=== PATIENT | male | born 1955 | race African-American/Black ===

== ENCOUNTER 2020-04-22 10:38 | Inpatient (IN) | payer OTHER ==
[2020-04-22] MEDS ORDERED: DEXAMETHASONE SOD PHOSPHATE 4 MG/1 ML VIAL IVPUSH ONE (11:30)
[2020-04-22] MEDS ORDERED: DEXAMETHASONE SOD PHOSPHATE 4 MG/1 ML VIAL ONE (12:24)
[2020-04-22 12:25] LABS: BASO % 1.7 % (0-2.0); EOS % 1.1 % (0-4.5); HEMATOCRIT 30.3 % (35.4-49); HEMOGLOBIN 9.7 GM/dL (11.7-16.9); LYMPH % 17.4 % (8-40); MCHC 31.9 g/dl (32.0-35.9); MEAN CELL VOLUME 91.1 fl (80-96); MEAN PLT VOLUME 10.2 fl (7.5-11.1); MONO % 5.7 % (3.8-10.2); NEUT % 74.1 % (42.8-82.8); PLATELET COUNT 249 K/MM3 (134-434); RBC 3.33 M/mm3 (4.00-5.60); RDW 18.2 % (11.9-15.9); WHITE BLOOD COUNT 5.3 K/mm3 (4.0-10.0)
[2020-04-22 12:30] LABS: INR 1.03 (0.83-1.09); PROTHROMBIN TIME (PATIENT) 12.5 SEC (9.7-13.0)
[2020-04-22 12:32] LABS: ACTIVATED PTT 32.1 SECONDS (25.2-36.5)
[2020-04-22 12:37] LABS: CHLORIDE 105 mmol/L (98-107); SODIUM 141 mmol/L (136-145)
[2020-04-22 12:38] LABS: CALCIUM 8.4 mg/dL (8.5-10.1)
[2020-04-22 12:39] LABS: ALBUMIN 3.4 g/dl (3.4-5.0); ANION GAP 2 MMOL/L (8-16); BLOOD UREA NITROGEN 68.1 mg/dL (7-18); CO2 34 mmol/L (21-32); GLUCOSE,RANDOM 97 mg/dL (74-106)
[2020-04-22 12:42] LABS: CREATININE 2.5 mg/dL (0.55-1.3); SGOT/AST 76 U/L (15-37); SGPT/ALT 151 U/L (13-61)
[2020-04-22 12:44] LABS: BILIRUBIN,TOTAL 0.6 mg/dL (0.2-1); TOT PROT 6.5 g/dl (6.4-8.2)
[2020-04-22 12:45] LABS: ALK PHOS 125 U/L (45-117)
[2020-04-22 12:46] LABS: LDH 379 U/L (87-246)
[2020-04-22] MEDS ORDERED: FUROSEMIDE 40 MG/4 ML INJECTABLE VIAL IVPUSH ONE ×2 (13:09→20:00)
[2020-04-22] MEDS ORDERED: FUROSEMIDE 40 MG/4 ML INJECTABLE VIAL ONE (13:44)
[2020-04-22] MEDS ORDERED: AZITHROMYCIN IVPB 500 MG in DEXTROSE 5%-WATER - 250 ML IVPB SCH (15:30)
[2020-04-22] MEDS ORDERED: CEFTRIAXONE 1 GM in DEXTROSE 5%-WATER - 50 ML IVPB SCH (15:30)
[2020-04-22] MEDS ORDERED: ENOXAPARIN NA (PORCINE) 40 MG/0.4 ML DISP.SYRIN SQ SCH (15:30)
[2020-04-22] MEDS ORDERED: CEFTRIAXONE 1 GM/50 ML BAG ONE (15:58)
[2020-04-22] MEDS ORDERED: AZITHROMYCIN IVPB 500 MG/250 ML BAG IVPB ONE (15:58)
[2020-04-22] MEDS ORDERED: ALBUTEROL SO4 HFA INHALER IH PRN (18:31)
[2020-04-22] MEDS: INSULIN SLIDING SCALE (NOVOLOG) 1 VIAL SQ SCH (21:20)
[2020-04-22] MEDS: HEPARIN NA (PORCINE) 5,000 UNITS/ML 1ML VIAL SQ SCH (21:32)
[2020-04-22] MEDS: MONTELUKAST NA 10 MG TABLET PO SCH ×2 (21:32→21:59)
[2020-04-22] MEDS: ZINC SULFATE 220 MG CAPSULE (FP) PO SCH ×2 (21:32→21:59)
[2020-04-22] MEDS: CARVEDILOL 12.5 MG TABLET (FP) PO SCH ×2 (21:32→21:58)
[2020-04-22] MEDS: ATORVASTATIN CA 10 MG TABLET (FP) PO SCH ×2 (21:32→21:59)
[2020-04-22] MEDS: ASCORBIC ACID 500 MG TABLET (FP) PO SCH ×2 (21:32→21:59)
[2020-04-22] MEDS ORDERED: hydrALAZINE HCL 25 MG TABLET (FP) PO SCH (22:00)
[2020-04-22] MEDS ORDERED: PATIENT'S OWN MEDICATION (NON-FORMULARY) (Insulin Glargine,Hum.Rec.Anlog [Basaglar Kwikpen SQ SCH (22:00)
[2020-04-23] MEDS ORDERED: MIDODRINE HCL 5 MG TABLET PO ONE (05:01)
[2020-04-23] MEDS: HEPARIN NA (PORCINE) 5,000 UNITS/ML 1ML VIAL SQ SCH (05:21)
[2020-04-23] MEDS ORDERED: SODIUM CHLORIDE 250 ML IV STA (06:20)
[2020-04-23 09:23] LABS: ARTERIAL BLD GAS O2 SATURATION 98.9 mmHg (95-98); ARTERIAL BLOOD GAS BASE EXCESS -1.8 mmol/L (-2-2); ARTERIAL BLOOD GAS PO2 184.2 mmHg (80-100)
[2020-04-23 09:29] LABS: VENT MODE A/C; VENT RATE 20
[2020-04-23 09:34] LABS: ARTERIAL BLOOD GAS pH 7.191 (7.350-7.450)
[2020-04-23] MEDS ORDERED: DEXAMETHASONE SOD PHOSPHATE 4 MG/1 ML VIAL IVPUSH SCH (10:00)
[2020-04-23] MEDS ORDERED: TOPIRAMATE 25 MG TABLET PO SCH (10:00)
[2020-04-23] MEDS ORDERED: VALSARTAN 80 MG TABLET PO SCH (10:00)
[2020-04-23] MEDS ORDERED: FUROSEMIDE 40 MG/4 ML INJECTABLE VIAL IVPUSH SCH (10:00)
[2020-04-23] MEDS ORDERED: MIDODRINE HCL 5 MG TABLET PO SCH (10:00)
[2020-04-23] MEDS ORDERED: cefTRIAXone SODIUM 1 GM VIAL ONE (10:21)
[2020-04-23] MEDS ORDERED: PROPOFOL 1,000,000 MCG/100 ML VIAL ONE (10:22)
[2020-04-23] MEDS ORDERED: DEXTROSE 5%-WATER - 50 ML IVPB ONE ×4 (10:22→19:56)
[2020-04-23] MEDS ORDERED: FENTANYL IVPB 500 MCG/100 ML BAG IVPB ONE (10:23)
[2020-04-23] MEDS: FENTANYL NS IVPB 500 MCG/100 ML BAG IVPB SCH (11:00)
[2020-04-23] MEDS: PROPOFOL 1,000,000 MCG/100 ML VIAL IVPB SCH ×2 (11:00→20:00)
[2020-04-23 11:27] LABS: BASO % 0.1 % (0-2.0); HEMATOCRIT 31.4 % (35.4-49); HEMOGLOBIN 9.5 GM/dL (11.7-16.9); LYMPH % 4.9 % (8-40); MCH 28.6 pg (25.7-33.7); MCHC 30.3 g/dl (32.0-35.9); MEAN CELL VOLUME 94.3 fl (80-96); MEAN PLT VOLUME 8.8 fl (7.5-11.1); MONO % 13.9 % (3.8-10.2); NEUT % 81.1 % (42.8-82.8); PLATELET COUNT 275 K/MM3 (134-434); RBC 3.33 M/mm3 (4.00-5.60); RDW 18.1 % (11.9-15.9); WHITE BLOOD COUNT 7.5 K/mm3 (4.0-10.0)
[2020-04-23] MEDS: INSULIN (LEVEMIR) 100 UNITS/ML UNITS SQ SCH (11:39)
[2020-04-23] MEDS: INSULIN SLIDING SCALE (NOVOLOG) 1 VIAL SQ SCH ×4 (11:40→20:59)
[2020-04-23] MEDS: ASPIRIN 81 MG CHEWABLE TABLETS PO SCH (11:40)
[2020-04-23] MEDS ORDERED: SODIUM CHLORIDE 1,000 ML IV STA ×2 (11:55→14:38)
[2020-04-23 11:56] LABS: ALBUMIN 3.3 g/dl (3.4-5.0); BLOOD UREA NITROGEN 85.7 mg/dL (7-18); CALCIUM 8.4 mg/dL (8.5-10.1)
[2020-04-23 11:57] LABS: MAGNESIUM 3.8 mg/dL (1.8-2.4)
[2020-04-23 11:59] LABS: CREATININE 4.5 mg/dL (0.55-1.3)
[2020-04-23] MEDS ORDERED: VANCOMYCIN HCL 1,500 MG in DEXTROSE 5%-WATER - 500 ML IVPB ONE (12:00)
[2020-04-23 12:01] LABS: BILIRUBIN,TOTAL 0.6 mg/dL (0.2-1); TOT PROT 6.2 g/dl (6.4-8.2)
[2020-04-23] MEDS ORDERED: PT OWN MED DRAWER 7, Y5N ONE (12:01)
[2020-04-23] MEDS ORDERED: PIPERACILLIN/TAZOBACTAM 2.25 GM VIAL IVPB ONE ×3 (12:32→19:56)
[2020-04-23] MEDS: HEPARIN INFUSION - 25,000 UNITS/500 ML INFUS.BAG IVPB SCH (12:33)
[2020-04-23] MEDS: AZITHROMYCIN IVPB 500 MG/250 ML BAG IVPB SCH (12:33)
[2020-04-23] MEDS: ZINC SULFATE 220 MG CAPSULE (FP) PO SCH ×2 (12:33→20:59)
[2020-04-23] MEDS: ASCORBIC ACID 500 MG TABLET (FP) PO SCH ×2 (12:33→21:00)
[2020-04-23] MEDS: PIPERACILLIN/TAZOB 2.25 GM 2.25 GM in DEXTROSE 5%-WATER - 50 ML IVPB SCH ×3 (12:34→20:57)
[2020-04-23 12:35] LABS: PHOSPHOROUS 9.2 mg/dL (2.5-4.9)
[2020-04-23 13:53] LABS: ARTERIAL BLD GAS O2 SATURATION 98.5 mmHg (95-98); ARTERIAL BLOOD GAS BASE EXCESS -1.4 mmol/L (-2-2); ARTERIAL BLOOD GAS PO2 151.2 mmHg (80-100); ARTERIAL BLOOD GAS pH 7.227 (7.350-7.450)
[2020-04-23 13:54] LABS: ALLENS TEST POSITIVE
[2020-04-23 13:55] LABS: VENT MODE A/C; VENT RATE 26
[2020-04-23] MEDS: SODIUM CHLORIDE 1,000 ML IV SCH (14:46)
[2020-04-23] MEDS ORDERED: NOREPINEPHRINE BITARTRATE 8,000 MCG/500 ML BAG IVPB SCH (15:45)
[2020-04-23 17:49] LABS: BASO % 0.1 % (0-2.0); HEMATOCRIT 30.4 % (35.4-49); HEMOGLOBIN 9.5 GM/dL (11.7-16.9); LYMPH % 5.9 % (8-40); MCH 28.9 pg (25.7-33.7); MCHC 31.3 g/dl (32.0-35.9); MEAN CELL VOLUME 92.3 fl (80-96); MEAN PLT VOLUME 8.8 fl (7.5-11.1); MONO % 9.8 % (3.8-10.2); NEUT % 84.2 % (42.8-82.8); PLATELET COUNT 279 K/MM3 (134-434); RBC 3.29 M/mm3 (4.00-5.60); RDW 17.3 % (11.9-15.9); WHITE BLOOD COUNT 7.9 K/mm3 (4.0-10.0)
[2020-04-23 18:00] LABS: INR 1.02 (0.83-1.09); PROTHROMBIN TIME (PATIENT) 12.5 SEC (9.7-13.0)
[2020-04-23 18:03] LABS: ACTIVATED PTT 75.1 SECONDS (25.2-36.5)
[2020-04-23 18:13] LABS: ALBUMIN 3.2 g/dl (3.4-5.0); BLOOD UREA NITROGEN 79.6 mg/dL (7-18); CALCIUM 7.7 mg/dL (8.5-10.1)
[2020-04-23 18:17] LABS: CREATININE 4.6 mg/dL (0.55-1.3)
[2020-04-23 18:18] LABS: BILIRUBIN,TOTAL 0.9 mg/dL (0.2-1); TOT PROT 6.1 g/dl (6.4-8.2)
[2020-04-23 18:39] LABS: MAGNESIUM 3.5 mg/dL (1.8-2.4)
[2020-04-23 18:42] LABS: PHOSPHOROUS 8.6 mg/dL (2.5-4.9)
[2020-04-23] MEDS ORDERED: FUROSEMIDE 40 MG/4 ML INJECTABLE VIAL IVPUSH ONE (19:32)
[2020-04-23] MEDS ORDERED: PANTOPRAZOLE SODIUM 40 MG VIAL IVPUSH ONE (20:29)
[2020-04-23] MEDS: MONTELUKAST NA 10 MG TABLET PO SCH (21:00)
[2020-04-24 02:05] LABS: VENT RATE 16
[2020-04-24] MEDS: PIPERACILLIN/TAZOB 2.25 GM 2.25 GM in DEXTROSE 5%-WATER - 50 ML IVPB SCH ×4 (03:00→21:00)
[2020-04-24] MEDS ORDERED: PIPERACILLIN/TAZOBACTAM 2.25 GM VIAL IVPB ONE ×4 (03:44→23:07)
[2020-04-24] MEDS ORDERED: DEXTROSE 5%-WATER - 50 ML IVPB ONE ×2 (03:44→09:39)
[2020-04-24] MEDS ORDERED: PT OWN MED DRAWER 7, Y5N ONE (05:31)
[2020-04-24 05:51] LABS: ARTERIAL BLD GAS O2 SATURATION 96.7 mmHg (95-98); ARTERIAL BLOOD GAS BASE EXCESS -5.5 mmol/L (-2-2); ARTERIAL BLOOD GAS PO2 110.6 mmHg (80-100)
[2020-04-24 05:53] LABS: ALLENS TEST POSITIVE; VENT MODE A/C; VENT RATE 26
[2020-04-24 05:55] LABS: ARTERIAL BLOOD GAS pH 7.172 (7.350-7.450)
[2020-04-24] MEDS: INSULIN SLIDING SCALE (NOVOLOG) 1 VIAL SQ SCH ×4 (06:31→22:00)
[2020-04-24] MEDS: HEPARIN INFUSION - 25,000 UNITS/500 ML INFUS.BAG IVPB SCH (07:30)
[2020-04-24] MEDS: INSULIN (LEVEMIR) 100 UNITS/ML UNITS SQ SCH (07:45)
[2020-04-24] MEDS: VASOPRESSIN 40 UNITS in SODIUM CHLORIDE 98 ML IVPB SCH (08:15)
[2020-04-24] MEDS ORDERED: SODIUM CHLORIDE 0.9% 500 ML INFUS.BAG IV ONE (08:49)
[2020-04-24] MEDS: NOREPINEPHRINE BITARTRATE 16,000 MCG in SODIUM CHLORIDE 484 ML IV SCH ×2 (09:00→21:03)
[2020-04-24 09:13] LABS: INR 1.03 (0.83-1.09); PROTHROMBIN TIME (PATIENT) 12.5 SEC (9.7-13.0)
[2020-04-24 09:15] LABS: BASO % 0.1 % (0-2.0); HEMATOCRIT 30.6 % (35.4-49); HEMOGLOBIN 9.3 GM/dL (11.7-16.9); LYMPH % 7.1 % (8-40); MCH 28.9 pg (25.7-33.7); MCHC 30.4 g/dl (32.0-35.9); MEAN CELL VOLUME 95.2 fl (80-96); MEAN PLT VOLUME 9.3 fl (7.5-11.1); MONO % 7.6 % (3.8-10.2); NEUT % 85.2 % (42.8-82.8); PLATELET COUNT 279 K/MM3 (134-434); RBC 3.21 M/mm3 (4.00-5.60); RDW 17.9 % (11.9-15.9); WHITE BLOOD COUNT 8.9 K/mm3 (4.0-10.0)
[2020-04-24 09:16] LABS: ACTIVATED PTT 103.4 SECONDS (25.2-36.5)
[2020-04-24 09:56] LABS: BLOOD UREA NITROGEN 97.2 mg/dL (7-18); CALCIUM 7.2 mg/dL (8.5-10.1); CREATININE 5.1 mg/dL (0.55-1.3); MAGNESIUM 3.5 mg/dL (1.8-2.4); PHOSPHOROUS 8.6 mg/dL (2.5-4.9)
[2020-04-24] MEDS: AZITHROMYCIN IVPB 500 MG/250 ML BAG IVPB SCH (10:02)
[2020-04-24] MEDS: ASPIRIN 81 MG CHEWABLE TABLETS PO SCH ×2 (10:03→10:21)
[2020-04-24] MEDS: ZINC SULFATE 220 MG CAPSULE (FP) PO SCH ×3 (10:03→22:58)
[2020-04-24] MEDS: ASCORBIC ACID 500 MG TABLET (FP) PO SCH ×3 (10:03→22:59)
[2020-04-24] MEDS: FENTANYL NS IVPB 500 MCG/100 ML BAG IVPB SCH ×2 (10:04→18:57)
[2020-04-24] MEDS ORDERED: DEXTROSE 50%-WATER - 25 GM/50 ML VIAL IVPUSH ONE (10:30)
[2020-04-24] MEDS ORDERED: SODIUM BICARBONATE 8.4% 50 MEQ/50 ML DISP.SYRIN IVPUSH ONE (10:30)
[2020-04-24] MEDS ORDERED: INSULIN REGULAR HUMAN 100 UNITS/ML *VIAL IVPUSH ONE (10:30)
[2020-04-24] MEDS ORDERED: DEXTROSE 50%-WATER 25 GM/50 ML DISP.SYRIN ONE (12:11)
[2020-04-24 12:43] LABS: ARTERIAL BLD GAS O2 SATURATION 96.6 mmHg (95-98); ARTERIAL BLOOD GAS BASE EXCESS -6.6 mmol/L (-2-2); ARTERIAL BLOOD GAS PO2 102.3 mmHg (80-100); ARTERIAL BLOOD GAS pH 7.238 (7.350-7.450)
[2020-04-24 12:45] LABS: ALLENS TEST POSITIVE; VENT MODE AC; VENT RATE 26
[2020-04-24 14:52] LABS: CALCIUM 7.3 mg/dL (8.5-10.1); CREATININE 5.3 mg/dL (0.55-1.3)
[2020-04-24 14:53] LABS: BLOOD UREA NITROGEN 107.7 mg/dL (7-18)
[2020-04-24 14:58] LABS: EPI CELLS >36 /uL (0-25.1); HYALINE CASTS 26 /uL (0-3.1); URINE APPEARANCE TURBID; URINE BILIRUBIN 1+ (NEGATIVE); URINE COLOR RED; URINE GLUCOSE (UA) NEGATIVE (NEGATIVE); URINE KETONE NEGATIVE (NEGATIVE); URINE LEUK ESTERASE 2+ (NEGATIVE); URINE NITRITE POSITIVE (NEGATIVE); URINE PROTEIN 2+ (NEGATIVE); URINE RBC 30539 /uL (0-23.9); URINE UROBILINOGEN 0.2 mg/dL (0.2-1.0); URINE WBC 170 /uL (0-25.8)
[2020-04-24 15:50] VITALS: BMI 48.4
[2020-04-24] MEDS ORDERED: SODIUM CHLORIDE 250 ML IV PRN (16:33)
[2020-04-24] MEDS: SODIUM CHLORIDE 1,000 ML IV SCH (16:56)
[2020-04-24] MEDS: PROPOFOL 1,000,000 MCG/100 ML VIAL IVPB SCH (18:57)
[2020-04-24] MEDS: MONTELUKAST NA 10 MG TABLET PO SCH (22:59)
[2020-04-25] MEDS: HEPARIN NA (PORCINE) 5,000 UNITS/ML 1ML VIAL IVPUSH PRN (01:00)
[2020-04-25] MEDS: NOREPINEPHRINE BITARTRATE 16,000 MCG in SODIUM CHLORIDE 484 ML IV SCH ×4 (01:01→09:48)
[2020-04-25] MEDS: PIPERACILLIN/TAZOB 2.25 GM 2.25 GM in DEXTROSE 5%-WATER - 50 ML IVPB SCH ×4 (03:00→21:13)
[2020-04-25 06:50] LABS: HEMATOCRIT 28.7 % (35.4-49); HEMOGLOBIN 9.2 GM/dL (11.7-16.9); MCH 29.2 pg (25.7-33.7); MCHC 32.2 g/dl (32.0-35.9); MEAN CELL VOLUME 90.8 fl (80-96); MEAN PLT VOLUME 8.8 fl (7.5-11.1); PLATELET COUNT 240 K/MM3 (134-434); RBC 3.16 M/mm3 (4.00-5.60); RDW 17.7 % (11.9-15.9); WHITE BLOOD COUNT 8.2 K/mm3 (4.0-10.0)
[2020-04-25] MEDS: INSULIN SLIDING SCALE (NOVOLOG) 1 VIAL SQ SCH ×4 (06:55→21:32)
[2020-04-25] MEDS: INSULIN (LEVEMIR) 100 UNITS/ML UNITS SQ SCH (07:23)
[2020-04-25] MEDS: HEPARIN INFUSION - 25,000 UNITS/500 ML INFUS.BAG IVPB SCH ×2 (09:21→14:05)
[2020-04-25] MEDS: VASOPRESSIN 40 UNITS in SODIUM CHLORIDE 98 ML IVPB SCH ×2 (09:23→09:49)
[2020-04-25] MEDS ORDERED: PIPERACILLIN/TAZOBACTAM 2.25 GM VIAL IVPB ONE ×3 (09:41→21:08)
[2020-04-25] MEDS ORDERED: DEXTROSE 5%-WATER - 50 ML IVPB ONE ×3 (09:42→21:08)
[2020-04-25] MEDS: AZITHROMYCIN IVPB 500 MG/250 ML BAG IVPB SCH (09:48)
[2020-04-25] MEDS: PROPOFOL 1,000,000 MCG/100 ML VIAL IVPB SCH ×4 (09:48→21:13)
[2020-04-25] MEDS: FENTANYL NS IVPB 500 MCG/100 ML BAG IVPB SCH ×4 (09:49→21:14)
[2020-04-25 10:43] LABS: CALCIUM 7.8 mg/dL (8.5-10.1)
[2020-04-25 10:44] LABS: ALBUMIN 2.8 g/dl (3.4-5.0); MAGNESIUM 2.9 mg/dL (1.8-2.4)
[2020-04-25 10:47] LABS: CREATININE 3.7 mg/dL (0.55-1.3); PHOSPHOROUS 5.3 mg/dL (2.5-4.9)
[2020-04-25 10:48] LABS: BILIRUBIN,TOTAL 0.6 mg/dL (0.2-1)
[2020-04-25 10:49] LABS: TOT PROT 5.7 g/dl (6.4-8.2)
[2020-04-25 10:52] LABS: BLOOD UREA NITROGEN 71.8 mg/dL (7-18)
[2020-04-25] MEDS: FAMOTIDINE 20 MG/50 ML IVPB 20 MG/50 ML MG IVPB SCH (14:01)
[2020-04-25] MEDS: SODIUM CHLORIDE 1,000 ML IV SCH (14:03)
[2020-04-25] MEDS: ASPIRIN 81 MG CHEWABLE TABLETS PO SCH (18:06)
[2020-04-25] MEDS: ASCORBIC ACID 500 MG TABLET (FP) PO SCH ×2 (18:07→21:13)
[2020-04-25] MEDS: ZINC SULFATE 220 MG CAPSULE (FP) PO SCH ×2 (18:07→21:13)
[2020-04-25] MEDS ORDERED: FENTANYL IVPB 500 MCG/100 ML BAG IVPB ONE (21:06)
[2020-04-25] MEDS: MONTELUKAST NA 10 MG TABLET PO SCH (21:13)
[2020-04-26] MEDS: PIPERACILLIN/TAZOB 2.25 GM 2.25 GM in DEXTROSE 5%-WATER - 50 ML IVPB SCH ×4 (03:07→21:49)
[2020-04-26] MEDS ORDERED: FENTANYL IVPB 500 MCG/100 ML BAG IVPB ONE (03:28)
[2020-04-26] MEDS ORDERED: DEXTROSE 5%-WATER - 50 ML IVPB ONE ×4 (05:01→20:41)
[2020-04-26] MEDS ORDERED: PIPERACILLIN/TAZOBACTAM 2.25 GM VIAL IVPB ONE ×4 (05:01→20:41)
[2020-04-26] MEDS: INSULIN (LEVEMIR) 100 UNITS/ML UNITS SQ SCH (06:30)
[2020-04-26] MEDS: INSULIN SLIDING SCALE (NOVOLOG) 1 VIAL SQ SCH ×4 (06:31→22:00)
[2020-04-26 06:50] LABS: BASO % 0.1 % (0-2.0); EOS % 0.7 % (0-4.5); HEMATOCRIT 24.9 % (35.4-49); HEMOGLOBIN 8.1 GM/dL (11.7-16.9); LYMPH % 13.7 % (8-40); MCHC 32.5 g/dl (32.0-35.9); MEAN CELL VOLUME 89.3 fl (80-96); MEAN PLT VOLUME 9.2 fl (7.5-11.1); MONO % 8.5 % (3.8-10.2); PLATELET COUNT 215 K/MM3 (134-434); RBC 2.79 M/mm3 (4.00-5.60); RDW 17.7 % (11.9-15.9); WHITE BLOOD COUNT 7.2 K/mm3 (4.0-10.0)
[2020-04-26 07:16] LABS: ALBUMIN 2.3 g/dl (3.4-5.0); CALCIUM 7.9 mg/dL (8.5-10.1)
[2020-04-26 07:17] LABS: BLOOD UREA NITROGEN 71.6 mg/dL (7-18); MAGNESIUM 2.7 mg/dL (1.8-2.4)
[2020-04-26 07:20] LABS: CREATININE 3.8 mg/dL (0.55-1.3)
[2020-04-26 07:21] LABS: PHOSPHOROUS 4.8 mg/dL (2.5-4.9); TOT PROT 5.1 g/dl (6.4-8.2)
[2020-04-26 07:24] LABS: BILIRUBIN,TOTAL 0.6 mg/dL (0.2-1)
[2020-04-26] MEDS: PROPOFOL 1,000,000 MCG/100 ML VIAL IVPB SCH ×2 (07:30→16:59)
[2020-04-26 08:06] LABS: HIV INTERPRETATION NEGATIVE (NEGATIVE)
[2020-04-26] MEDS: HEPARIN INFUSION - 25,000 UNITS/500 ML INFUS.BAG IVPB SCH (09:29)
[2020-04-26] MEDS: VASOPRESSIN 40 UNITS in SODIUM CHLORIDE 98 ML IVPB SCH (09:30)
[2020-04-26] MEDS: NOREPINEPHRINE BITARTRATE 16,000 MCG in SODIUM CHLORIDE 484 ML IV SCH (09:30)
[2020-04-26] MEDS: HEPARIN NA (PORCINE) 5,000 UNITS/ML 1ML VIAL IVPUSH PRN ×2 (09:33→19:00)
[2020-04-26] MEDS: AZITHROMYCIN IVPB 500 MG/250 ML BAG IVPB SCH (10:30)
[2020-04-26] MEDS: ZINC SULFATE 220 MG CAPSULE (FP) PO SCH (10:33)
[2020-04-26] MEDS: ASPIRIN 81 MG CHEWABLE TABLETS PO SCH (10:33)
[2020-04-26] MEDS: FAMOTIDINE 20 MG/50 ML IVPB 20 MG/50 ML MG IVPB SCH (10:33)
[2020-04-26] MEDS: ASCORBIC ACID 500 MG TABLET (FP) PO SCH (10:33)
[2020-04-26] MEDS: FUROSEMIDE 40 MG/4 ML INJECTABLE VIAL IVPUSH SCH ×2 (12:37→21:50)
[2020-04-26] MEDS: FENTANYL NS IVPB 500 MCG/100 ML BAG IVPB SCH (16:59)
[2020-04-26] MEDS: SODIUM CHLORIDE 1,000 ML IV SCH (21:33)
[2020-04-26] MEDS: MONTELUKAST NA 10 MG TABLET PO SCH (21:50)
[2020-04-27] MEDS: PIPERACILLIN/TAZOB 2.25 GM 2.25 GM in DEXTROSE 5%-WATER - 50 ML IVPB SCH ×4 (03:39→21:00)
[2020-04-27] MEDS: INSULIN SLIDING SCALE (NOVOLOG) 1 VIAL SQ SCH ×4 (06:10→22:00)
[2020-04-27] MEDS: INSULIN (LEVEMIR) 100 UNITS/ML UNITS SQ SCH (06:10)
[2020-04-27] MEDS ORDERED: DEXTROSE 5%-WATER - 50 ML IVPB ONE ×4 (06:45→20:09)
[2020-04-27] MEDS ORDERED: PIPERACILLIN/TAZOBACTAM 2.25 GM VIAL IVPB ONE ×4 (06:45→20:09)
[2020-04-27 07:29] LABS: BASO % 0.4 % (0-2.0); EOS % 0.4 % (0-4.5); HEMATOCRIT 25.3 % (35.4-49); HEMOGLOBIN 8.2 GM/dL (11.7-16.9); LYMPH % 19.6 % (8-40); MCH 28.7 pg (25.7-33.7); MCHC 32.4 g/dl (32.0-35.9); MEAN CELL VOLUME 88.5 fl (80-96); MEAN PLT VOLUME 9.4 fl (7.5-11.1); NEUT % 68.6 % (42.8-82.8); PLATELET COUNT 225 K/MM3 (134-434); RBC 2.86 M/mm3 (4.00-5.60); RDW 17.3 % (11.9-15.9); WHITE BLOOD COUNT 7.1 K/mm3 (4.0-10.0)
[2020-04-27 07:46] LABS: ALBUMIN 2.2 g/dl (3.4-5.0); CALCIUM 8.1 mg/dL (8.5-10.1)
[2020-04-27 07:47] LABS: BLOOD UREA NITROGEN 68.8 mg/dL (7-18); MAGNESIUM 2.7 mg/dL (1.8-2.4)
[2020-04-27 07:50] LABS: CREATININE 3.8 mg/dL (0.55-1.3); PHOSPHOROUS 4.5 mg/dL (2.5-4.9)
[2020-04-27] MEDS: HEPARIN NA (PORCINE) 5,000 UNITS/ML 1ML VIAL IVPUSH PRN (07:50)
[2020-04-27 07:51] LABS: BILIRUBIN,TOTAL 0.6 mg/dL (0.2-1); TOT PROT 5.4 g/dl (6.4-8.2)
[2020-04-27] MEDS: NOREPINEPHRINE BITARTRATE 16,000 MCG in SODIUM CHLORIDE 484 ML IV SCH (09:19)
[2020-04-27] MEDS: HEPARIN INFUSION - 25,000 UNITS/500 ML INFUS.BAG IVPB SCH (09:20)
[2020-04-27] MEDS: FAMOTIDINE 20 MG/50 ML IVPB 20 MG/50 ML MG IVPB SCH (10:41)
[2020-04-27] MEDS: ASPIRIN 81 MG CHEWABLE TABLETS PO SCH (10:42)
[2020-04-27] MEDS: FUROSEMIDE 40 MG/4 ML INJECTABLE VIAL IVPUSH SCH ×2 (10:42→22:00)
[2020-04-27] MEDS: AMINO ACIDS/PROTEIN HYDROLYS 30 ML LIQUID.PKT PO SCH (16:50)
[2020-04-27] MEDS: FENTANYL NS IVPB 500 MCG/100 ML BAG IVPB SCH ×2 (18:40→20:00)
[2020-04-27] MEDS: PROPOFOL 1,000,000 MCG/100 ML VIAL IVPB SCH ×2 (18:40→20:00)
[2020-04-27] MEDS ORDERED: NOREPINEPHRINE BITARTRATE 8,000 MCG/500 ML BAG IVPB ONE (20:09)
[2020-04-27] MEDS: MONTELUKAST NA 10 MG TABLET PO SCH (23:39)
[2020-04-28] MEDS: HEPARIN INFUSION - 25,000 UNITS/500 ML INFUS.BAG IVPB SCH ×2 (00:30→12:36)
[2020-04-28] MEDS: PIPERACILLIN/TAZOB 2.25 GM 2.25 GM in DEXTROSE 5%-WATER - 50 ML IVPB SCH ×4 (03:00→21:36)
[2020-04-28] MEDS ORDERED: PIPERACILLIN/TAZOBACTAM 2.25 GM VIAL IVPB ONE ×4 (04:58→21:31)
[2020-04-28] MEDS ORDERED: DEXTROSE 5%-WATER - 50 ML IVPB ONE ×4 (04:59→21:31)
[2020-04-28] MEDS: INSULIN (LEVEMIR) 100 UNITS/ML UNITS SQ SCH (06:42)
[2020-04-28] MEDS: INSULIN SLIDING SCALE (NOVOLOG) 1 VIAL SQ SCH ×4 (06:42→21:42)
[2020-04-28 06:52] LABS: BASO % 0.6 % (0-2.0); EOS % 0.5 % (0-4.5); HEMATOCRIT 23.7 % (35.4-49); HEMOGLOBIN 7.7 GM/dL (11.7-16.9); LYMPH % 11.2 % (8-40); MCH 28.7 pg (25.7-33.7); MCHC 32.3 g/dl (32.0-35.9); MEAN CELL VOLUME 88.8 fl (80-96); MEAN PLT VOLUME 9.1 fl (7.5-11.1); NEUT % 79.7 % (42.8-82.8); PLATELET COUNT 195 K/MM3 (134-434); RBC 2.67 M/mm3 (4.00-5.60); RDW 17.3 % (11.9-15.9); WHITE BLOOD COUNT 7.3 K/mm3 (4.0-10.0)
[2020-04-28] MEDS: AMINO ACIDS/PROTEIN HYDROLYS 30 ML LIQUID.PKT PO SCH (07:51)
[2020-04-28 08:47] LABS: ALBUMIN 2.1 g/dl (3.4-5.0); BILIRUBIN,TOTAL 1.3 mg/dL (0.2-1); CREATININE 3.7 mg/dL (0.55-1.3); MAGNESIUM 2.6 mg/dL (1.8-2.4); PHOSPHOROUS 5.9 mg/dL (2.5-4.9); TOT PROT 5.2 g/dl (6.4-8.2)
[2020-04-28] MEDS: NOREPINEPHRINE BITARTRATE 16,000 MCG in SODIUM CHLORIDE 484 ML IV SCH (09:24)
[2020-04-28] MEDS: FUROSEMIDE 40 MG/4 ML INJECTABLE VIAL IVPUSH SCH ×2 (09:24→21:36)
[2020-04-28] MEDS: FAMOTIDINE 20 MG/50 ML IVPB 20 MG/50 ML MG IVPB SCH (10:23)
[2020-04-28] MEDS: ASPIRIN 81 MG CHEWABLE TABLETS PO SCH (10:52)
[2020-04-28] MEDS: PROPOFOL 1,000,000 MCG/100 ML VIAL IVPB SCH (19:40)
[2020-04-28] MEDS: FENTANYL NS IVPB 500 MCG/100 ML BAG IVPB SCH (19:40)
[2020-04-28] MEDS: MONTELUKAST NA 10 MG TABLET PO SCH (21:36)
[2020-04-29] MEDS ORDERED: PIPERACILLIN/TAZOBACTAM 2.25 GM VIAL IVPB ONE ×4 (00:11→21:20)
[2020-04-29] MEDS ORDERED: DEXTROSE 5%-WATER - 50 ML IVPB ONE ×4 (00:11→21:20)
[2020-04-29] MEDS: PIPERACILLIN/TAZOB 2.25 GM 2.25 GM in DEXTROSE 5%-WATER - 50 ML IVPB SCH ×4 (03:20→21:31)
[2020-04-29] MEDS: INSULIN (LEVEMIR) 100 UNITS/ML UNITS SQ SCH (06:24)
[2020-04-29] MEDS: INSULIN SLIDING SCALE (NOVOLOG) 1 VIAL SQ SCH ×4 (06:24→22:31)
[2020-04-29] MEDS: AMINO ACIDS/PROTEIN HYDROLYS 30 ML LIQUID.PKT PO SCH (07:40)
[2020-04-29 08:03] LABS: BASO % 0.1 % (0-2.0); HEMATOCRIT 22.3 % (35.4-49); HEMOGLOBIN 7.2 GM/dL (11.7-16.9); LYMPH % 11.4 % (8-40); MCH 28.7 pg (25.7-33.7); MCHC 32.3 g/dl (32.0-35.9); MEAN CELL VOLUME 88.8 fl (80-96); MEAN PLT VOLUME 8.9 fl (7.5-11.1); MONO % 10.3 % (3.8-10.2); NEUT % 77.2 % (42.8-82.8); PLATELET COUNT 196 K/MM3 (134-434); RBC 2.51 M/mm3 (4.00-5.60); RDW 17.3 % (11.9-15.9); WHITE BLOOD COUNT 7.1 K/mm3 (4.0-10.0)
[2020-04-29] MEDS: HEPARIN INFUSION - 25,000 UNITS/500 ML INFUS.BAG IVPB SCH (08:38)
[2020-04-29] MEDS: NOREPINEPHRINE BITARTRATE 16,000 MCG in SODIUM CHLORIDE 484 ML IV SCH (09:20)
[2020-04-29] MEDS: ASPIRIN 81 MG CHEWABLE TABLETS PO SCH (09:22)
[2020-04-29] MEDS: FAMOTIDINE 20 MG/50 ML IVPB 20 MG/50 ML MG IVPB SCH (09:22)
[2020-04-29] MEDS: FUROSEMIDE 40 MG/4 ML INJECTABLE VIAL IVPUSH SCH (09:22)
[2020-04-29 10:21] LABS: BILIRUBIN,TOTAL 0.4 mg/dL (0.2-1); BLOOD UREA NITROGEN 81.6 mg/dL (7-18); CALCIUM 8.2 mg/dL (8.5-10.1); TOT PROT 5.3 g/dl (6.4-8.2)
[2020-04-29] MEDS ORDERED: PROPOFOL 200 MG/20 ML VIAL IVPUSH ONE (13:32)
[2020-04-29] MEDS ORDERED: MIDAZOLAM HCL 2 MG/2 ML SINGLE DOSE VIAL IVPUSH ONE ×2 (13:33→16:08)
[2020-04-29] MEDS: BACITRACIN 15 GM TUBE TOPICAL OINTMENT TP SCH (13:41)
[2020-04-29] MEDS: PROPOFOL 1,000,000 MCG/100 ML VIAL IVPB SCH ×2 (13:56→19:37)
[2020-04-29] MEDS: FENTANYL NS IVPB 500 MCG/100 ML BAG IVPB SCH (13:57)
[2020-04-29] MEDS ORDERED: ALBUTEROL SO4 2.5/IPRATROPIUM 0.5 INH SOL 3 ML VIAL.NEB. NEB ONE (16:18)
[2020-04-29] MEDS: MIDAZOLAM 100 MG/100 ML MG IVPB SCH (16:23)
[2020-04-29] MEDS: ACETAMINOPHEN 1000 MG/100 ML BAG IVPB PRN (18:10)
[2020-04-29] MEDS: MONTELUKAST NA 10 MG TABLET PO SCH (21:32)
[2020-04-30] MEDS ORDERED: DEXTROSE 5%-WATER - 50 ML IVPB ONE ×4 (02:13→21:12)
[2020-04-30] MEDS ORDERED: PIPERACILLIN/TAZOBACTAM 2.25 GM VIAL IVPB ONE ×4 (02:13→21:12)
[2020-04-30] MEDS: ACETAMINOPHEN 1000 MG/100 ML BAG IVPB PRN (02:26)
[2020-04-30] MEDS: PIPERACILLIN/TAZOB 2.25 GM 2.25 GM in DEXTROSE 5%-WATER - 50 ML IVPB SCH ×4 (02:26→21:15)
[2020-04-30] MEDS: HEPARIN INFUSION - 25,000 UNITS/500 ML INFUS.BAG IVPB SCH ×3 (03:57→21:16)
[2020-04-30] MEDS: INSULIN (LEVEMIR) 100 UNITS/ML UNITS SQ SCH (06:22)
[2020-04-30] MEDS: FUROSEMIDE 40 MG/4 ML INJECTABLE VIAL IVPUSH SCH ×2 (06:22→13:53)
[2020-04-30] MEDS: INSULIN SLIDING SCALE (NOVOLOG) 1 VIAL SQ SCH ×4 (06:22→21:16)
[2020-04-30 06:51] LABS: BASO % 0.4 % (0-2.0); HEMATOCRIT 21.4 % (35.4-49); LYMPH % 13.8 % (8-40); MCH 28.9 pg (25.7-33.7); MCHC 32.5 g/dl (32.0-35.9); MEAN CELL VOLUME 88.9 fl (80-96); MEAN PLT VOLUME 9.3 fl (7.5-11.1); MONO % 12.3 % (3.8-10.2); NEUT % 71.5 % (42.8-82.8); PLATELET COUNT 199 K/MM3 (134-434); RBC 2.41 M/mm3 (4.00-5.60); RDW 17.1 % (11.9-15.9); WHITE BLOOD COUNT 6.8 K/mm3 (4.0-10.0)
[2020-04-30 07:00] LABS: INR 1.15 (0.83-1.09); PROTHROMBIN TIME (PATIENT) 14.1 SEC (9.7-13.0)
[2020-04-30 07:03] LABS: ACTIVATED PTT 68.7 SECONDS (25.2-36.5)
[2020-04-30 07:13] LABS: ALBUMIN 1.9 g/dl (3.4-5.0); BLOOD UREA NITROGEN 92.1 mg/dL (7-18); CALCIUM 8.1 mg/dL (8.5-10.1)
[2020-04-30 07:17] LABS: CREATININE 3.9 mg/dL (0.55-1.3)
[2020-04-30 07:18] LABS: BILIRUBIN,TOTAL 0.5 mg/dL (0.2-1); TOT PROT 5.3 g/dl (6.4-8.2)
[2020-04-30] MEDS: NOREPINEPHRINE BITARTRATE 16,000 MCG in SODIUM CHLORIDE 484 ML IV SCH (10:24)
[2020-04-30] MEDS: AMINO ACIDS/PROTEIN HYDROLYS 30 ML LIQUID.PKT PO SCH (10:24)
[2020-04-30] MEDS: ASPIRIN 81 MG CHEWABLE TABLETS PO SCH (10:25)
[2020-04-30] MEDS: BACITRACIN 15 GM TUBE TOPICAL OINTMENT TP SCH (10:25)
[2020-04-30] MEDS: FAMOTIDINE 20 MG/50 ML IVPB 20 MG/50 ML MG IVPB SCH (10:25)
[2020-04-30] MEDS: PROPOFOL 1,000,000 MCG/100 ML VIAL IVPB SCH ×3 (10:43→21:17)
[2020-04-30] MEDS: MIDAZOLAM 100 MG/100 ML MG IVPB SCH ×2 (16:23→21:16)
[2020-04-30] MEDS: FERROUS SO4 300 MG/5 ML ORAL SOLN UNIT DOSE CUPS NGT SCH (21:15)
[2020-04-30] MEDS: MONTELUKAST NA 10 MG TABLET PO SCH (21:16)
[2020-05-01] MEDS ORDERED: PIPERACILLIN/TAZOBACTAM 2.25 GM VIAL IVPB ONE ×5 (02:33→23:36)
[2020-05-01] MEDS ORDERED: DEXTROSE 5%-WATER - 50 ML IVPB ONE ×5 (02:34→23:36)
[2020-05-01] MEDS: PIPERACILLIN/TAZOB 2.25 GM 2.25 GM in DEXTROSE 5%-WATER - 50 ML IVPB SCH ×4 (02:44→23:21)
[2020-05-01] MEDS: PROPOFOL 1,000,000 MCG/100 ML VIAL IVPB SCH ×4 (02:44→16:30)
[2020-05-01] MEDS: FUROSEMIDE 40 MG/4 ML INJECTABLE VIAL IVPUSH SCH ×2 (06:13→14:00)
[2020-05-01] MEDS: INSULIN SLIDING SCALE (NOVOLOG) 1 VIAL SQ SCH ×4 (06:14→23:58)
[2020-05-01] MEDS: INSULIN (LEVEMIR) 100 UNITS/ML UNITS SQ SCH (06:14)
[2020-05-01] MEDS: NOREPINEPHRINE BITARTRATE 16,000 MCG in SODIUM CHLORIDE 484 ML IV SCH ×2 (06:15→09:28)
[2020-05-01] MEDS: MIDAZOLAM 100 MG/100 ML MG IVPB SCH ×2 (06:15→17:01)
[2020-05-01 07:06] LABS: BASO % 0.3 % (0-2.0); EOS % 1.6 % (0-4.5); HEMATOCRIT 21.5 % (35.4-49); LYMPH % 11.8 % (8-40); MCH 28.9 pg (25.7-33.7); MCHC 32.4 g/dl (32.0-35.9); MEAN CELL VOLUME 89.2 fl (80-96); MEAN PLT VOLUME 9.2 fl (7.5-11.1); MONO % 10.1 % (3.8-10.2); NEUT % 76.2 % (42.8-82.8); PLATELET COUNT 212 K/MM3 (134-434); RBC 2.42 M/mm3 (4.00-5.60); RDW 17.2 % (11.9-15.9); WHITE BLOOD COUNT 9.5 K/mm3 (4.0-10.0)
[2020-05-01] MEDS ORDERED: PT OWN MED DRAWER 7, Y5N ONE ×4 (07:54→20:34)
[2020-05-01] MEDS: AMINO ACIDS/PROTEIN HYDROLYS 30 ML LIQUID.PKT PO SCH ×2 (07:55→16:48)
[2020-05-01 09:08] LABS: ALBUMIN 1.9 g/dl (3.4-5.0); BLOOD UREA NITROGEN 102.7 mg/dL (7-18); CALCIUM 8.4 mg/dL (8.5-10.1)
[2020-05-01 09:12] LABS: CREATININE 4.3 mg/dL (0.55-1.3)
[2020-05-01 09:13] LABS: BILIRUBIN,TOTAL 0.3 mg/dL (0.2-1); TOT PROT 5.5 g/dl (6.4-8.2)
[2020-05-01 09:13] LABS: INR 1.13 (0.83-1.09); PROTHROMBIN TIME (PATIENT) 13.8 SEC (9.7-13.0)
[2020-05-01 09:15] LABS: ACTIVATED PTT 62.6 SECONDS (25.2-36.5)
[2020-05-01] MEDS: ASPIRIN 81 MG CHEWABLE TABLETS PO SCH (09:40)
[2020-05-01] MEDS: BACITRACIN 15 GM TUBE TOPICAL OINTMENT TP SCH (09:40)
[2020-05-01] MEDS: FAMOTIDINE 20 MG/50 ML IVPB 20 MG/50 ML MG IVPB SCH (09:40)
[2020-05-01] MEDS: FERROUS SO4 300 MG/5 ML ORAL SOLN UNIT DOSE CUPS NGT SCH ×2 (09:40→23:21)
[2020-05-01 09:44] LABS: ARTERIAL BLD GAS O2 SATURATION 97.1 mmHg (95-98); ARTERIAL BLOOD GAS BASE EXCESS 3.5 mmol/L (-2-2); ARTERIAL BLOOD GAS PO2 98.2 mmHg (80-100); ARTERIAL BLOOD GAS pH 7.359 (7.350-7.450)
[2020-05-01 09:47] LABS: VENT MODE A/C; VENT RATE 14
[2020-05-01] MEDS: HEPARIN INFUSION - 25,000 UNITS/500 ML INFUS.BAG IVPB SCH ×2 (10:36→16:31)
[2020-05-01] MEDS ORDERED: NOREPINEPHRINE D5W PREMIX 16,000 MCG/500 ML BAG IVPB ONE (20:19)
[2020-05-01] MEDS: MONTELUKAST NA 10 MG TABLET PO SCH (23:21)
[2020-05-01] MEDS: FUROSEMIDE INJECTION 100 MG in DEXTROSE 5%-WATER - 90 ML IVPB SCH (23:58)
[2020-05-02] MEDS ORDERED: RAPID SEQUENCE INTUBATION KIT NR ONE (00:13)
[2020-05-02] MEDS: PIPERACILLIN/TAZOB 2.25 GM 2.25 GM in DEXTROSE 5%-WATER - 50 ML IVPB SCH ×4 (02:30→21:00)
[2020-05-02 07:21] LABS: BASO % 0.6 % (0-2.0); EOS % 2.3 % (0-4.5); HEMATOCRIT 20.8 % (35.4-49); LYMPH % 9.9 % (8-40); MCH 29.1 pg (25.7-33.7); MCHC 32.6 g/dl (32.0-35.9); MEAN CELL VOLUME 89.2 fl (80-96); MEAN PLT VOLUME 9.6 fl (7.5-11.1); MONO % 8.9 % (3.8-10.2); NEUT % 78.3 % (42.8-82.8); PLATELET COUNT 233 K/MM3 (134-434); RBC 2.34 M/mm3 (4.00-5.60); RDW 17.3 % (11.9-15.9)
[2020-05-02] MEDS: INSULIN SLIDING SCALE (NOVOLOG) 1 VIAL SQ SCH ×4 (07:23→22:10)
[2020-05-02] MEDS: INSULIN (LEVEMIR) 100 UNITS/ML UNITS SQ SCH (07:23)
[2020-05-02 08:07] LABS: HEMOGLOBIN 6.8 GM/dL (11.7-16.9)
[2020-05-02 09:18] LABS: ALBUMIN 1.9 g/dl (3.4-5.0); BILIRUBIN,TOTAL 0.4 mg/dL (0.2-1); BLOOD UREA NITROGEN 101.9 mg/dL (7-18); CALCIUM 8.4 mg/dL (8.5-10.1); CREATININE 3.8 mg/dL (0.55-1.3); PHOSPHOROUS 6.8 mg/dL (2.5-4.9); TOT PROT 5.6 g/dl (6.4-8.2)
[2020-05-02] MEDS: NOREPINEPHRINE BITARTRATE 16,000 MCG in SODIUM CHLORIDE 484 ML IV SCH (09:25)
[2020-05-02] MEDS: HEPARIN INFUSION - 25,000 UNITS/500 ML INFUS.BAG IVPB SCH ×2 (09:25→13:56)
[2020-05-02] MEDS ORDERED: DEXTROSE 5%-WATER - 50 ML IVPB ONE ×3 (09:27→22:08)
[2020-05-02] MEDS ORDERED: PIPERACILLIN/TAZOBACTAM 2.25 GM VIAL IVPB ONE ×3 (09:27→22:07)
[2020-05-02] MEDS: BACITRACIN 15 GM TUBE TOPICAL OINTMENT TP SCH (10:12)
[2020-05-02] MEDS: FAMOTIDINE 20 MG/50 ML IVPB 20 MG/50 ML MG IVPB SCH (10:12)
[2020-05-02] MEDS: AMINO ACIDS/PROTEIN HYDROLYS 30 ML LIQUID.PKT PO SCH ×3 (10:12→18:55)
[2020-05-02] MEDS: ASPIRIN 81 MG CHEWABLE TABLETS PO SCH (10:12)
[2020-05-02] MEDS: FERROUS SO4 300 MG/5 ML ORAL SOLN UNIT DOSE CUPS NGT SCH ×2 (10:13→22:10)
[2020-05-02] MEDS: PROPOFOL 1,000,000 MCG/100 ML VIAL IVPB SCH ×4 (11:07→22:11)
[2020-05-02] MEDS ORDERED: VASOPRESSIN 20 UNITS/ML VIAL IV ONE (16:32)
[2020-05-02] MEDS: MIDAZOLAM 100 MG/100 ML MG IVPB SCH (17:19)
[2020-05-02] MEDS: FUROSEMIDE INJECTION 100 MG in DEXTROSE 5%-WATER - 90 ML IVPB SCH ×2 (17:30→23:00)
[2020-05-02] MEDS ORDERED: PT OWN MED DRAWER 7, Y5N ONE (22:07)
[2020-05-02] MEDS: MONTELUKAST NA 10 MG TABLET PO SCH (22:11)
[2020-05-02] MEDS ORDERED: MIDAZOLAM 100 MG/100 ML MG IVPB ONE (23:53)
[2020-05-03] MEDS: PIPERACILLIN/TAZOB 2.25 GM 2.25 GM in DEXTROSE 5%-WATER - 50 ML IVPB SCH ×2 (03:00→08:21)
[2020-05-03] MEDS ORDERED: DEXTROSE 5%-WATER - 50 ML IVPB ONE ×2 (06:38→07:55)
[2020-05-03] MEDS ORDERED: PIPERACILLIN/TAZOBACTAM 2.25 GM VIAL IVPB ONE ×2 (06:38→07:55)
[2020-05-03] MEDS: INSULIN (LEVEMIR) 100 UNITS/ML UNITS SQ SCH (07:08)
[2020-05-03] MEDS: INSULIN SLIDING SCALE (NOVOLOG) 1 VIAL SQ SCH ×3 (07:09→16:44)
[2020-05-03 07:28] LABS: BASO % 0.7 % (0-2.0); HEMATOCRIT 23.4 % (35.4-49); HEMOGLOBIN 7.5 GM/dL (11.7-16.9); LYMPH % 8.9 % (8-40); MCH 28.3 pg (25.7-33.7); MCHC 32.1 g/dl (32.0-35.9); MEAN CELL VOLUME 88.3 fl (80-96); MEAN PLT VOLUME 9.7 fl (7.5-11.1); MONO % 5.7 % (3.8-10.2); NEUT % 83.7 % (42.8-82.8); PLATELET COUNT 259 K/MM3 (134-434); RBC 2.65 M/mm3 (4.00-5.60); RDW 17.3 % (11.9-15.9); WHITE BLOOD COUNT 11.5 K/mm3 (4.0-10.0)
[2020-05-03] MEDS: AMINO ACIDS/PROTEIN HYDROLYS 30 ML LIQUID.PKT PO SCH ×3 (07:31→16:44)
[2020-05-03 08:21] LABS: ALBUMIN 1.8 g/dl (3.4-5.0); BILIRUBIN,TOTAL 0.4 mg/dL (0.2-1); BLOOD UREA NITROGEN 100.2 mg/dL (7-18); CALCIUM 8.6 mg/dL (8.5-10.1); CREATININE 3.8 mg/dL (0.55-1.3); MAGNESIUM 3.1 mg/dL (1.8-2.4); PHOSPHOROUS 6.8 mg/dL (2.5-4.9); TOT PROT 5.8 g/dl (6.4-8.2)
[2020-05-03] MEDS ORDERED: PT OWN MED DRAWER 7, Y5N ONE (08:58)
[2020-05-03] MEDS: ASPIRIN 81 MG CHEWABLE TABLETS PO SCH (09:03)
[2020-05-03] MEDS: BACITRACIN 15 GM TUBE TOPICAL OINTMENT TP SCH (09:03)
[2020-05-03] MEDS: HEPARIN INFUSION - 25,000 UNITS/500 ML INFUS.BAG IVPB SCH (09:03)
[2020-05-03] MEDS: FAMOTIDINE 20 MG/50 ML IVPB 20 MG/50 ML MG IVPB SCH (09:03)
[2020-05-03] MEDS: FERROUS SO4 300 MG/5 ML ORAL SOLN UNIT DOSE CUPS NGT SCH (09:03)
[2020-05-03] MEDS: NOREPINEPHRINE BITARTRATE 16,000 MCG in SODIUM CHLORIDE 484 ML IV SCH (09:03)
[2020-05-03] MEDS: PROPOFOL 1,000,000 MCG/100 ML VIAL IVPB SCH ×2 (09:04→16:45)
[2020-05-03] MEDS ORDERED: VASOPRESSIN 20 UNITS/ML VIAL IV ONE (10:26)
[2020-05-03] MEDS ORDERED: VASOPRESSIN 40 UNITS in SODIUM CHLORIDE 98 ML IVPB SCH (10:30)
[2020-05-03] MEDS ORDERED: SODIUM CHLORIDE 250 ML IV STA (12:29)
[2020-05-03] MEDS ORDERED: BENZOIN/ALOE VERA/STORAX/TOLU 58 ML BOTTLE ONE (14:32)
[2020-05-03] MEDS: DOPAMINE 400 MG/D5W - 400,000 MCG/250 ML INFUS.BAG IVPB SCH ×2 (16:43→18:33)
[2020-05-03] MEDS: MIDAZOLAM 100 MG/100 ML MG IVPB SCH (16:45)
[2020-05-03 18:34] VITALS: BP 67/39; PULSE 64
[2020-05-03 18:46] VITALS: TEMP 99.8
== END 2020-05-03 19:45 | disposition expired | DRG 207 ==
LOC: JER 10:38 → JERBED 13:10 → J4S 18:06 → JICU 04-23 08:06
PROVIDERS: ADMIT Internal Medicine; ATTEND Family Medicine
PROC: 05HM33Z Insertion of Infusion Device into Right Internal Jugular Vein, Percutaneous Approach (ICD-10-PCS; principal; 2020-04-23)
PROC: 5A1955Z Respiratory Ventilation, Greater than 96 Consecutive Hours (ICD-10-PCS; 2020-04-23)
PROC: B543ZZA Ultrasonography of Right Jugular Veins, Guidance (ICD-10-PCS; 2020-04-23)
PROC: 0CHY7BZ Insertion of Airway into Mouth and Throat, Via Natural or Artificial Opening (ICD-10-PCS; 2020-04-24)
PROC: 06HM33Z Insertion of Infusion Device into Right Femoral Vein, Percutaneous Approach (ICD-10-PCS; 2020-04-24)
PROC: B54BZZA Ultrasonography of Right Lower Extremity Veins, Guidance (ICD-10-PCS; 2020-04-24)
PROC: 4A133B1 Monitoring of Arterial Pressure, Peripheral, Percutaneous Approach (ICD-10-PCS; 2020-04-24)
PROC: 4A133J1 Monitoring of Arterial Pulse, Peripheral, Percutaneous Approach (ICD-10-PCS; 2020-04-24)
PROC: 5A12012 Performance of Cardiac Output, Single, Manual (ICD-10-PCS; 2020-04-24)
PROC: 5A1D70Z Performance of Urinary Filtration, Intermittent, Less than 6 Hours Per Day (ICD-10-PCS; 2020-04-24)
DX: J96.02 Acute respiratory failure with hypercapnia (principal); J18.9 Pneumonia, unspecified organism; R65.21 Severe sepsis with septic shock; A41.89 Other specified sepsis; N17.9 Acute kidney failure, unspecified; I13.0 Hypertensive heart and chronic kidney disease with heart failure and stage 1 through stage 4 chronic kidney disease, or unspecified chronic kidney disease; Z68.42 Body mass index [BMI] 45.0-49.9, adult; I31.3 Pericardial effusion (noninflammatory); G93.1 Anoxic brain damage, not elsewhere classified; G93.40 Encephalopathy, unspecified; E87.2 Acidosis; J96.01 Acute respiratory failure with hypoxia; E78.5 Hyperlipidemia, unspecified; I95.9 Hypotension, unspecified; E66.01 Morbid (severe) obesity due to excess calories; J45.909 Unspecified asthma, uncomplicated; R77.8 Other specified abnormalities of plasma proteins; I46.9 Cardiac arrest, cause unspecified; E11.22 Type 2 diabetes mellitus with diabetic chronic kidney disease; E87.70 Fluid overload, unspecified; K21.9 Gastro-esophageal reflux disease without esophagitis; N18.9 Chronic kidney disease, unspecified; I50.9 Heart failure, unspecified; R57.8 Other shock; R68.0 Hypothermia, not associated with low environmental temperature; E87.5 Hyperkalemia; D64.9 Anemia, unspecified; Z66 Do not resuscitate
CPT/HCPCS: 31500; 36415; 36430; 36600; 71045-TC-FY; 71046-TC-FY; 76775-TC; 76856-TC; 80048; 80053; 80074; 81003; 82272; 82550; 82553; 82607; 82728; 82803; 82962; 83036; 83540; 83550; 83615; 83735; 83880; 83930; 83935; 84100; 84300; 84439; 84443; 84484; 85025; 85027; 85379; 85610; 85730; 86140; 86803; 86850; 86900; 86901; 86922; 87040; 87070; 87086; 87205; 87340; 87389; 87804; 87899; 93005; 93010; 93306-TC; 93970-TC; 94002; 94640; 99285-25; C9803; G0480; J0131; J1644; P9058; U0003